=== PATIENT | male | born 1990 | race Caucasian/White ===

== ENCOUNTER 2023-08-13 07:14 | Emergency (ER) | payer OTHER ==
[~2023-08-13] VITALS: Ht 180.3 cm; Wt 90.7 kg
[2023-08-13 07:21] VITALS: BP 142/79
== END 2023-08-13 09:43 | disposition home or self-care (01) ==
LOC: ER 07:14
DX: R07.9 Chest pain, unspecified (principal); Z53.21 Procedure and treatment not carried out due to patient leaving prior to being seen by health care provider
CPT/HCPCS: 71046; 93005; 93010

== ENCOUNTER → 2023-08-13 | Outpatient (CLI) | payer OTHER ==
[2023-08-13 14:27] LABS: BASOPHILS ABSOLUTE AUTO 0.08 K/mm3 (0.00-0.23); BASOPHILS PERCENT AUTO 1 % (0-2); EOSINOPHILS ABSOLUTE AUTO 0.29 K/mm3 (0.00-0.68); EOSINOPHILS PERCENT AUTO 4 % (0-6); Hemoglobin 14.5 g/dL (13.5-17.5); IMMATURE GRAN ABSOLUTE AUTO 0.01 K/mm3 (0.00-0.10); IMMATURE GRAN PERCENT AUTO 0 % (0-1); LYMPHOCYTES ABSOLUTE AUTO 2.59 K/mm3 (0.84-5.20); LYMPHOCYTES PERCENT AUTO 38 % (21-46); MONOCYTES ABSOLUTE AUTO 0.47 K/mm3 (0.16-1.47); MONOCYTES PERCENT AUTO 7 % (4-13); Mean Corpuscular HGB Conc 34.5 g/dL (31.5-36.5); Mean Corpuscular Volume 87 fL (80-100); Mean Platelet Volume 9.6 fL (9.1-12.4); NEUTROPHILS ABSOLUTE AUTO 3.41 K/mm3 (1.96-9.15); NEUTROPHILS PERCENT AUTO 50 % (41-73); Platelet Count 408 K/mm3 (150-400); RDW Coefficient Variation 12.3 % (11.7-14.2); Red Blood Cell Count 4.84 M/mm3 (4.30-5.90); White Blood Cell Count 6.85 K/mm3 (4.00-11.30)
[2023-08-13 14:38] LABS: Albumin, Blood 4.6 g/dL (3.4-5.0); Albumin/Globulin Ratio 1.4 (0.8-1.8); Bilirubin, Total 0.8 mg/dL (0.1-1.0); Bun/Creatinine Ratio 12.7 (12.0-20.0); Calcium, Blood 9.7 mg/dL (8.5-10.1); Creatinine, Blood 1.18 mg/dL (0.60-1.20); Globulin, Blood 3.3 g/dL (2.2-4.0); Potassium, Blood 3.8 mmol/L (3.5-5.5); Total Protein, Blood 7.9 g/dL (6.4-8.2)
[2023-08-13 14:53] LABS: CHOL/HDL RATIO 4.2; Cholesterol 180 mg/dL (50-200); HDL Cholesterol 43 mg/dL (>39); LDL/HDL RATIO 2.8; Low Density Lipoprotein Chol 118 mg/dL (<110); Triglycerides 93 mg/dL (30-140); Very Low Density Lipoprot Chol 18 mg/dL (6-28)
== END | disposition home or self-care (01) ==
LOC: LAB 14:21 → LAB SHORT 14:21
PROVIDERS: Family Medicine; Physician Assistant
DX: F17.200 Nicotine dependence, unspecified, uncomplicated (principal); R07.9 Chest pain, unspecified
CPT/HCPCS: 80053; 80061; 84484; 85025; 85379